=== PATIENT | female | born 1945 | race African-American/Black ===

== ENCOUNTER 2019-02-13 14:42 | Inpatient (IN) | payer MEDICARE ==
[~2019-02-13 14:42] MED LIST: ISOVUE-370 76%-LOCM 1 ML ONE
--- NOTE | 2019-02-13 15:05 | CT ---
Exam: Head CT without contrast HISTORY: Left arm weakness. COMPARISON: none FINDINGS: Hemorrhage: No intraparenchymal hemorrhage or extra-axial hematoma. Brain parenchyma: Cortical isaac-white matter differentiation is preserved. No mass effect or midline shift. Basilar cisterns are patent.White matter hypodensities due to chronic small vessel ischemic changes are noted. Remote insult in the right cerebellar hemisphere with volume loss. Ventricular system: Ventricles and sulci are patent and symmetric. Calvarium: Intact. Sinuses and mastoid air cells: Adequate aeration. IMPRESSION: No acute intracranial process. Results of study discussed with Dr. Patterson 02/13/2019 at 3:01 PM code CR
[2019-02-13 15:21] LABS: #Eosinphils 0.5 thou/uL (0.0-0.7); #Lymphocytes 2.1 thou/uL (1.20-3.40); #Monocytes 0.6 thou/uL (0.11-0.59); #Neutrophils 2.3 thou/uL (1.40-6.50); %Basophils 0.6 % (0.0-1.0); %Eosinophils 8.9 % (0.0-10.0); %Lymphocytes 37.7 % (21.0-51.0); %Monocytes 10.5 % (0.0-10.0); %Neutrophils 42.2 % (42.0-75.0); Hemoglobin 12.3 g/dL (12.0-16.0); Mean Corpuscular HGB CONC 33.7 g/dL (32.0-36.0); Mean Corpuscular Hemoglobin 32.9 pg (27.0-31.0); Mean Corpuscular Volume 97.8 fL (78.0-98.0); Mean Platelet Volume 9.3 fL (7.4-10.4); Platelet Count 148 thou/uL (130-400); RBC Distribution Width 11.9 % (11.5-14.5); Red Blood Cell (RBC) Count 3.74 mill/uL (4.20-5.40); White Blood Cell (WBC) Count 5.6 thou/uL (4.8-10.8)
[2019-02-13 15:28] LABS: PTT 28.9 SEC (22.9-36.1); Prothrombin Time 13.6 SEC (12.0-14.7)
--- NOTE | 2019-02-13 15:29 | RAD ---
CHEST 1 VIEW: Date: 02/13/19 HISTORY: Stroke alert. Left-sided weakness. COMPARISON: None. FINDINGS: Single view of chest demonstrates elongation of the aorta. Normal cardiac silhouette. Pulmonary vesse ls and hilum are normal. Costophrenic angles are clear. No consolidation or mass. No pneumothorax or osseous abnormalities. Left-sided transvenous pacemaker with lead position over the right atrium and right ventricle. IMPRESSION: No acute cardiopulmonary process. POS: CAMRON
[2019-02-13 15:44] LABS: ALT (SGPT) 16 U/L (8-55); AST (SGOT) 16 U/L (5-34); Albumin 3.9 g/dL (3.4-4.8); Alkaline Phosphatase 81 U/L (40-150); Anion Gap 14 mmol/L (10-20); BUN (Urea Nitrogen) 20 mg/dL (9.8-20.1); Bilirubin, Total 0.7 mg/dL (0.2-1.2); CK (CPK) 69 U/L (29-168); Calc. Creatinine Clearance 0 mL/min (70-130); Calcium 8.6 mg/dL (7.8-10.44); Carbon Dioxide 27 mmol/L (23-31); Chloride 102 mmol/L (98-107); Estimated GFR-MDRD 44; Globulin 2.2 g/dL (2.4-3.5); Glucose 98 mg/dL (83-110); Potassium 3.3 mmol/L (3.5-5.1); Protein, Total 6.1 g/dL (6.0-8.3); Sodium 140 mmol/L (136-145)
--- NOTE | 2019-02-13 15:46 | CT ---
CT ANGIOGRAM OF THE NECK CT ANGIOGHRAM OF THE HEAD 02/13/19 HISTORY: Left sided weakness. COMPARISON: None. TECHNIQUE: CT angiogram of the head and neck are performed in the axial plane. Three dimensional reformatted jimmy ges are submitted for interpretation. FINDINGS: POSTCONTRAST HEAD CT: No pathologic enhancement of the brain parenchyma. [place] left and implanted right ocular lens are appropriately located. Both globes are intact. Retrob ulbar fat is preserved. Adequate aeration of the visualized sinuses and mastoid air cells. Aerodigestive tract is patent. No mucosal abnormality. Torus villi palatini is noted. Midline fatty r aphe of the tongue is preserved. Epiglottis has a normal caliber. Pre-epiglottic is preserved. Symmetric attenuation of the parotid and submandibular glands. Unremarkable thyroid gland. No evidence of lymphadenopathy by size criteria. Symmetric attenuation of the sternocleidomastoid muscles. Cervical spine vertebral body height is maintained. There is no fracture. Varying degrees of central canal stenosis and neural foraminal narrowing on the basis of degenerative change. Upper mediastinum is unremarkable. Possible right upper lobe infiltrate. Additional chronic changes o f the visualized lung parenchyma is noted. CT ANGIOGRAM: There is appropriate enhancement and luminal diameter in the visualized aortic arch. Atherosclerosis is noted. RIGHT CAROTID: The innominate artery origin has appropriate enhancement and luminal diameter. The proximal right com mon carotid artery is slightly tortuous. The common carotid, carotid bifurcation and internal carotid artery have appropriate enhancement and luminal diameter. There is some tortuosity of the distal cer vical internal carotid artery. LEFT CAROTID: Left common carotid artery origin, common carotid artery, carotid bifurcation, and internal carotid h ave appropriate enhancement and luminal diameter. There is tortuosity in the distal cervical internal carotid artery. Right vertebral artery appears to be opacified. The left vertebral artery is patent throughout its co urse in the neck. Bilateral subclavian arteries are patent. CT ANGIOGRAM OF THE HEAD: Distal cervical and intracranial internal carotid arteries have appropriate enhancement and luminal d iameter. ANTERIOR CIRCULATION: Diminutive right A1 segment likely congenital variant. Left A1 segment is unremarkable. Bilateral A2 segments are noted. Left and right M1 segments have symmetric enhancement and luminal diameter. Prox imal MCA branches have appropriate enhancement and luminal diameter. POSTERIOR CIRCULATION: There is minimal contrast opacification of the distal cervical and intracranial vertebral artery like ly due to collateral flow. The majority of the basilar artery is supplied by the left vertebral arter y which is patent. No evidence of significant stenosis at the level of the basilar artery. Both curing oven tender have a origin and are patent. IMPRESSION: 1. No evidence of hemodynamically significant stenosis of either cervical carotid artery, based upon NASCET criteria. 2. No significant stenosis at the level of the [place]. 3. Results of the study discussed with Dr. Patterson, 02/13/19 at 3:36 p.m. Code CR POS: JULIETH
[2019-02-13 16:15] LABS: Bilirubin Negative (Negative); Blood, Urine Negative (Negative); Clarity CLEAR (Clear); Glucose, Urine (Dipstick) Negative (Negative); Leukocyte Negative (Negative); Nitrite Negative (Negative); Protein, Urine (Dipstick) Negative (Neg-Trace); Urobilinogen 0.2 mg/dL (0.2-1.0)
[2019-02-13 17:14] LABS: Medtox Reader # READER 4
[2019-02-13 17:15] LABS: Amphetamine Not Detected (NotDetected); Barbiturates Screen Not Detected (NotDetected); Benzodiazepine Screen Not Detected (NotDetected); Cocaine Metabolite Screen Not Detected (NotDetected); Medtox Control Line Valid? VALID (VALID); Methadone Not Detected (NotDetected); Methamphetamine Not Detected (NotDetected); Opiate Screen Not Detected (NotDetected); Oxycodone Screen Not Detected (NotDetected); Phencyclidine (PCP) Not Detected (NotDetected); THC/Cannabinoid Screen Not Detected (NotDetected); Tricyclic Screen Not Detected (NotDetected)
[2019-02-13] MEDS ORDERED: Potassium Chloride 20 MEQ TAB ONE (17:24)
[2019-02-13] MEDS ORDERED: Acetaminophen 325 MG TAB ONE (17:33)
--- NOTE | 2019-02-13 20:01 | HP ---
CHIEF COMPLAINT: Weakness and near syncope. HISTORY OF PRESENT ILLNESS: Ms. Reyes is a 73-year-old woman, who presents following a presyncopal episode earlier today while at a . The patient states that she was comforting a family member, who is significantly distressed during a when suddenly as she was walking down the aisle, began to feel weak in her legs, experiencing trembling in her hands and legs. She recalls her sister asking if she was okay and states that she felt someone catch her and lower her to the ground. She reports feeling generally weak and recalls everyone talking as they were surrounding her and checking on her. She denies any loss of consciousness. States that at one point, she lost control of her bladder. She has known history of CVA in the past and states that she has experienced "seizure-like" episodes since then. She also reports residual left-sided deficits from her previous CVA. According to her sister, she had a moment of slurred speech approximately 1 minute prior to this episode. The patient has full recollection of all the events and during initial history taking, she seemed very alert and oriented, stating she was back to her usual self. She denied any complaints. This did change drastically on arrival of her sister and [id number]. She suddenly became tearful and appeared to be weak again as she slumped in the bed, no longer opening her eyes and with less effort on speaking. The patient has a history of atrial fibrillation and is on Eliquis. She has a permanent pacemaker that was placed 2 years ago, which she states has been fluttering more recently. She used to have a loop recorder before it was exchanged for the pacemaker and states this was done so due to persistent abnormal rhythms. She follows regularly with a cadd operator, who she last saw 2 months ago in [place]. REVIEW OF SYSTEMS: The patient states recently she has been in her usual state of health. She reports a good appetite. No nausea or vomiting. No abdominal pain or cramping. She last had a bowel movement this morning without any straining. No constipation or diarrhea. No melena. Denies any urinary symptoms except for the episode of urinary incontinence earlier today. Otherwise, normally has no issues with urinary incontinence and has not had any dysuria or hematuria. She suffers from migraines on occasion, which ; for this, she takes sumatriptan. The patient denies having any recent cough or hemoptysis. She reports feeling somewhat short of breath during the episode. She had earlier, but at the moment, denies any chest pain or shortness of breath. She denies having any preceding symptoms prior to this episode. PAST MEDICAL HISTORY: 1. Hypertension. 2. 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 3. Seizures. 4. CHF. 5. Atrial fibrillation. 6. Arthritis. PAST SURGICAL HISTORY: Previous loop recorder placement, exchanged for pacemaker in 2016. SOCIAL HISTORY: The patient denies any tobacco use, alcohol use, or illicit drug use. She apparently used to smoke, but quit more than 10 years ago. PHYSICAL EXAMINATION: GENERAL: The patient appears well developed, nourished, and in no acute distress on initial examination. VITAL SIGNS: Temperature 98.4, pulse 79, respirations 18, blood pressure 127/80, O2 saturation 94% on room air. HEENT: Normocephalic and atraumatic. Pupils are equal, round, and reactive to light. Extraocular movement on initial examination appeared to be intact; however, physical exam was interrupted by the arrival of her sister and [id number]. Immediately after when attempting to complete extraocular movement exam, the patient with a fixed gaze, alert, and not following my finger. Prior to this, she was following her sister moving across the room without difficulty using her eyes only with her head fixed. The patient denies any blurred vision or loss of vision. Oropharynx is clear. NECK: Supple with full range of motion. No neck tenderness or rigidity. LUNGS: Clear to auscultation bilaterally. CARDIAC: Regular rate and rhythm. ABDOMEN: Soft, obese, nontender, nondistended. Normoactive bowel sounds present. EXTREMITIES: No lower leg swelling or edema. SKIN: Without rash or jaundice. NEUROLOGIC: The patient was noted to have good apparent strength in both upper and lower extremities. When asked to scoot backwards and sit upright in order to examine her lungs, the patient did so very quickly without any assistance and was able to lift her weight using both arms and holding onto the rails of the stretcher. Following the interruption of the exam by her sister's arrival, the patient suddenly became limp and when attempting to assess for power, she had notable weakness in the bilateral upper and lower extremities, which appeared to be due to poor effort given the drastic change. The patient reports reduced sensation in the left lower extremity and upper extremity from previous stroke, reduced hand lightout examiner strength bilaterally. Speech normal. LABORATORY DATA: White blood count 5.6, hemoglobin 12.3, hematocrit 36.5, platelets 148. Potassium 3.3, sodium 140, BUN 20, creatinine 1.1, GFR 44, glucose 78, calcium 8.6, total bilirubin 0.7, AST 16, ALT 16, alkaline phosphatase 81. Troponin negative x1. Albumin 3.9. Prolactin 4.08. Magnesium 2.2. Urinalysis; negative. Urine drug screen; negative. IMAGING DATA: 1. Chest x-ray, 02/13/2019; no acute cardiopulmonary process. 2. CT of the brain, 02/13/2019; no acute intracranial process. 3. CT angiography of the head and neck; no evidence of hemodynamically significant stenosis of either cervical carotid artery. No significant stenosis at the level of [place]. IMPRESSION AND PLAN: Ms. Reyes is a 73-year-old woman, who is being referred for management of the followin. Presyncope. The patient states she has had similar episodes associated with seizures in the past; however, prolactin level is normal. Potentially, episode was exacerbated by emotional stress. We will continue transient ischemic attack workup, which will include an echo and MRI brain as well as consult to Neurology. The patient seemed to be initially back to baseline; however, this changed drastically once her sister and [id number] arrived and she suddenly appeared weak. She is without any complaints at this present time. We will check TSH and lipid panel. 2. Drastic change in physical exam. Again, difficult to say if this is due to any emotional stress she felt on arrival of her family and similar to what she experienced earlier today. We will continue to monitor. Plan as above. 3. Electrolyte disturbances. Potassium slightly low at 3.3 that has been replaced in the emergency department. Magnesium normal. 4. Atrial fibrillation. The patient with a pacemaker in place. We will obtain pacemaker . We will resume her home medications and she will be on continuous telemetry monitoring. 5. Hypertension. Resume home medications once verified. We will continue to monitor her blood pressure. 6. Gastrointestinal prophylaxis. 7. Deep venous thrombosis prophylaxis with mechanical SCDs. PT/OT consult. 8. Code status; full. Her surrogate decision maker is her sister, Ms. Graves. The patient's case was discussed with attending, who agrees upon care as described above. Job ID: [id number]
[2019-02-13] MEDS ORDERED: Ondansetron ODT 4 MG TAB SL PRN (20:16)
[2019-02-13] MEDS ORDERED: Ondansetron PF 4 MG/2 ML Vial IVP PRN (20:16)
[2019-02-13] MEDS ORDERED: Acetaminophen 325 MG TAB PO PRN (20:16)
[2019-02-13 20:26] VITALS: BMI 34.9
[2019-02-13 21:25] LABS: Troponin I Less than 0.010 ng/mL (< 0.028)
[2019-02-13] MEDS ORDERED: SUMAtriptan Succinate 50 MG TAB PO PRN (21:44)
[2019-02-13] MEDS ORDERED: cloNIDine 0.2 MG TAB PO PRN (21:44)
[2019-02-13] MEDS ORDERED: Meloxicam 15 MG TAB PO SCH (22:00)
[2019-02-13] MEDS ORDERED: Apixaban 5 MG TAB PO SCH (22:00)
[2019-02-13] MEDS ORDERED: Carvedilol 25 MG TAB PO SCH (22:00)
[2019-02-13] MEDS ORDERED: levETIRAcetam 500 MG TAB PO SCH (22:00)
[2019-02-13] MEDS ORDERED: Gabapentin 300 MG CAP PO SCH (22:00)
[2019-02-13] MEDS ORDERED: DULoxetine 30 MG CAP PO SCH (22:00)
[2019-02-13] MEDS ORDERED: cloNIDine 0.1 MG TAB PO PRN (22:18)
[2019-02-13] MEDS: Fioricet 325/50/40 mg Tablet PO PRN (22:33)
[2019-02-13] MEDS: Atorvastatin Calcium 40 MG TAB PO SCH (22:34)
[2019-02-14 01:20] LABS: Troponin I 0.011 ng/mL (< 0.028)
[2019-02-14 06:20] LABS: Cardiac Risk 2.6 (Less than 4.5)
[2019-02-14] MEDS ORDERED: Aspirin 81 mg Enteric Coated Tablet PO SCH (09:00)
[2019-02-14] MEDS ORDERED: Non-Formulary Item 1 EACH (Glucosam/Chondr-Msm1/D3/C/Mang [Glucosamine Chondroitin Comple PO SCH (09:00)
[2019-02-14] MEDS: Meloxicam 15 MG TAB PO SCH ×2 (09:16→21:58)
[2019-02-14] MEDS: Aspirin 81 mg Enteric Coated Tablet PO SCH (09:16)
[2019-02-14] MEDS: Carvedilol 25 MG TAB PO SCH ×2 (09:16→21:57)
[2019-02-14] MEDS: Gabapentin 300 MG CAP PO SCH ×3 (09:16→21:58)
[2019-02-14] MEDS: DULoxetine 30 MG CAP PO SCH ×2 (09:16→21:58)
[2019-02-14] MEDS: Apixaban 5 MG TAB PO SCH ×2 (09:16→21:58)
[2019-02-14] MEDS: Ferrous Sulfate 325 MG TAB PO SCH (09:17)
[2019-02-14] MEDS: Hydrochlorothiazide 25 MG TAB PO SCH (09:18)
[2019-02-14] MEDS: Losartan 25 MG TAB PO SCH (09:18)
[2019-02-14] MEDS: levETIRAcetam 500 MG TAB PO SCH ×2 (09:19→21:58)
[2019-02-14] MEDS: Furosemide 40 MG TAB PO SCH (09:27)
[2019-02-14] MEDS: Fioricet 325/50/40 mg Tablet PO PRN ×2 (09:42→16:06)
--- NOTE | 2019-02-14 09:56 | PRG ---
DATE OF SERVICE: 02/14/2019 SUBJECTIVE: The patient is seen and examined at the bedside. She still feels somewhat weak and tired. She does not have any chest pain. OBJECTIVE: VITAL SIGNS: Blood pressure is 130/76, pulse is 70, temperature is 98.3, respirations 20, and O2 saturation is 93% on room air. HEENT: Head is atraumatic and normocephalic. Eyes, PERRLA. Sclerae are nonicteric. Oral mucosa is moist. NECK: Supple. LUNGS: Clear. HEART: S1 and S2. Somewhat irregularly irregular. No S3. No S4. The pacer is in place. The area is not inflamed. ABDOMEN: Soft and nontender. Bowel sounds are present. No organomegaly. EXTREMITIES: No clubbing, cyanosis, or edema. Osteoarthritic changes in both knees affecting her mobility. NEUROLOGIC: She is alert and oriented x4. There is no any motor or sensory deficits present. Cranial nerves are intact. LABORATORY DATA: Two sets of troponin I within normal limits. Triglycerides 79, cholesterol 121, LDL 59, and HDL 46. IMPRESSION: 1. Presyncope. 2. Chronic atrial fibrillation with controlled ventricular rate. 3. Pacemaker. 4. Hypertension. 5. Osteoarthritis, severe, both knees. DISCUSSION: The patient did not have more episodes of syncope during this hospitalization. She is scheduled to have her pacer interrogated. She is scheduled to have Neurology consultation and she is scheduled to have echocardiogram and MRI of the brain. We will continue current regimen with Eliquis. We will continue aspirin and statin. Job ID: [id number]
--- NOTE | 2019-02-14 17:25 | CON ---
DATE OF TELEMEDICINE CONSULTATION WITH JOSE SORTO: 02/14/2019 CHIEF COMPLAINT: Loss of consciousness. HISTORY OF PRESENT ILLNESS: The patient has had prior stroke. She was admitted to [facility] with similar symptoms in the past and was told she had a TIA. Her EEG was negative at that time. Her sister gave her medical history as well as far as the event was concerned. The patient was at a yesterday and she was upset a little bit. She went over to talk to one of her family members and sister states that she lost control of her limbs and she went limp like a ragdoll and they were trying to wipe her with a wet cloth and wake her up, but she was out and tremulous, and per the patient EMS could not feel her carotid pulse and her blood pressure was very low and she was brought here. She usually gets confused after the event. The entire event lasted 15 to 20 minutes and she was confused postictally, but her prolactin was normal here. She does not have these episodes frequently. This is very similar to her prior episode. She had one episode last year, one in August, and this is her second episode this year. She does not have any weakness of her extremities. She does have arthritis. PREVIOUS MEDICAL HISTORY: The patient has had a loop recorder and subsequently had to get a pacemaker. She also has hypertension, history of CVA in the past, and with a residual left upper and lower extremity weakness. She has history of prior spells or seizure-like events, congestive heart failure, and arthritis. PREVIOUS SURGICAL HISTORY: Loop recorder placement and subsequent pacemaker placement in 2017, hernia repair, hysterectomy. FAMILY HISTORY: She has 2 brothers and 4 sisters. One brother of diabetes. One sister from her COPD and another from hypertension and complications related to hypertension. Her parents both from cancer. SOCIAL HISTORY: The patient does not smoke or drink. She lives with her sister at the moment and she used to be a smoker about 10 years ago. REVIEW OF SYSTEMS: PULMONARY: Negative for shortness of breath or cough. GASTROINTESTINAL: Negative for nausea, vomiting, or diarrhea. ENDOCRINE: Negative for diabetes or thyroid dysfunction. OPHTHALMOLOGIC: Negative for any vision problems. NEUROLOGIC: Positive for episodes or spells that are seizure-like event and history of weakness on the left side from a previous stroke. DERMATOLOGIC: Negative for rash. LABORATORY WORKUP: White count 5.6, hemoglobin 12.3, hematocrit 36.5, platelet count 148. PT 13.6, INR 1, APTT 28.9. Chemistry, her sodium was 140, potassium 3.3, chloride 102, bicarb 27, BUN 20, creatinine 1.21, glucose 98, and prolactin 4.08. Urine tox screen was negative. Urinalysis was also negative and her CT of the head was negative for acute stroke. CT angiography was also negative for any vascular stenosis in the carotid, as well as [place]. PHYSICAL EXAMINATION: VITAL SIGNS: Blood pressure was 130/76, temperature 98.3, pulse 70, respiratory rate 20, and O2 saturations 93%. GENERAL APPEARANCE: Well-built, well-nourished, very pleasant lady, who is comfortable in bed. CHEST: Clear vesicular breathing. CARDIOVASCULAR: S1 and S2 heard. No murmurs. ABDOMEN: Soft. No organomegaly noted. NEUROLOGIC: Higher intellectual functions. Normal orientation to time, place, and person and appropriate conversation. Cranial nerves 2 through 12. Normal extraocular movements. Tongue midline. Decreased sensation of the face on the right side. Normal elevation of palate. No facial asymmetry. Normal hearing. Motor examination, bulk normal. Tone normal. Strength was tested in iliopsoas , hamstrings, quadriceps, ankle dorsiflexion, plantar flexion bilaterally; deltoid, biceps, triceps, wrist extension and flexion; finger extension and flexion. On the left side, there seems to be general decrease in the strength to 3/5 in the left upper extremity and on the right and both lower extremities, there was some limitation with effort due to pain and her strength was 4/5. Cerebellar examination normal [id number], [id number]. Deep tendon reflexes 2+ throughout, and sensory there was decreased sensation in the right arm and right face. IMPRESSION: The patient is a 73-year-old lady with episodes on and off loss of consciousness as well as tremulousness, which are not very frequent and they have not happened all of last year except for August 2017 and she had another event in August 2018 and current event in January. This event was associated with low blood pressure and her neurological examination shows decreased sensation in the right face and arm and left lower extremity and mild weakness in the left upper extremity at 3/5 and bilateral lower extremities were 4/5. Clinical examination and history are most consistent with residual effects from the prior stroke plus possible syncopal event due to low blood pressure and this is likely not vascular or could be secondary to drop in her blood pressure. RECOMMENDATION: I would suggest keeping her on her current anticoagulant and consider adding aspirin if there is high suspicion for a TIA and obtain orthostatic vitals and I will see her as needed here in the hospital. Please refer her to an epileptologist as well for a full workup. Job ID: [id number] MTDD
[2019-02-14] MEDS: Potassium Chloride 10 MEQ TAB PO SCH (18:26)
[2019-02-14] MEDS: Atorvastatin Calcium 40 MG TAB PO SCH (21:58)
[2019-02-15 05:06] LABS: Platelet Count 147 thou/uL (130-400)
[2019-02-15] MEDS: Fioricet 325/50/40 mg Tablet PO PRN ×2 (05:16→21:39)
[2019-02-15] MEDS: Meloxicam 15 MG TAB PO SCH ×2 (08:11→21:29)
[2019-02-15] MEDS: Gabapentin 300 MG CAP PO SCH ×3 (08:11→21:30)
[2019-02-15] MEDS: DULoxetine 30 MG CAP PO SCH ×2 (08:11→21:29)
[2019-02-15] MEDS: Apixaban 5 MG TAB PO SCH ×2 (08:11→21:29)
[2019-02-15] MEDS: levETIRAcetam 500 MG TAB PO SCH ×2 (08:11→21:29)
[2019-02-15] MEDS: Carvedilol 25 MG TAB PO SCH (08:11)
[2019-02-15] MEDS: Furosemide 40 MG TAB PO SCH (08:12)
[2019-02-15] MEDS: Losartan 25 MG TAB PO SCH (08:12)
[2019-02-15] MEDS: Aspirin 81 mg Enteric Coated Tablet PO SCH (08:12)
[2019-02-15] MEDS: Potassium Chloride 10 MEQ TAB PO SCH ×2 (08:12→16:22)
[2019-02-15] MEDS: Hydrochlorothiazide 25 MG TAB PO SCH (08:13)
[2019-02-15] MEDS: Ferrous Sulfate 325 MG TAB PO SCH (08:13)
[2019-02-15] MEDS: Acetaminophen 325 MG TAB PO PRN (13:01)
[2019-02-15] MEDS ORDERED: Sodium Chloride 0.9% 250 ML IVPB SCH (13:45)
[2019-02-15] MEDS ORDERED: Sodium Chloride 0.9% 250 ML IV SCH (15:15)
--- NOTE | 2019-02-15 15:45 | PRG ---
DATE OF SERVICE: 02/15/2019 SUBJECTIVE: The patient is seen and examined at bedside. OBJECTIVE: VITAL SIGNS: She was found to be orthostatic with last blood pressure 82 systolic over 47, temperature 97.8, pulse 66, respiratory rate is 18, and O2 saturation is 98% on room air. HEENT: Head is atraumatic and normocephalic. Eyes are PERRLA. Sclerae are nonicteric. Oral mucosa is moist. NECK: Supple. LUNGS: Slightly diminished at both bases in terms of breath sounds. HEART: S1 and S2 normal. ABDOMEN: Soft, obese, nontender. EXTREMITIES: 1+ peripheral edema similar bilaterally. NEUROLOGIC: Intact. LABORATORY DATA: Labs showed hemoglobin of 13.0, hematocrit 37.9, platelet count is 147, creatinine 1.2 and estimated GFR is 54. Echocardiogram showed LVEF of 60% to 65%, grade 1/3 diastolic dysfunction with [id number]-ii-[id number] tricuspid regurgitation, and elevated right ventricular systolic pressure estimated at 56 mmHg. IMPRESSION: 1. Near syncope, most likely related to over-medication with diuretics and we found that she was on 2 ARBs at the same time. 2. Orthostasis secondary to diuresis and multiple blood pressure medications. We are going to stop Benicar with hydrochlorothiazide given bolus of normal saline at 250 mL/h and we are going to monitor her blood pressure closely. 3. Pacemaker interrogated. She had very short runs of atrial fibrillation x2. 4. Hypertension. 5. Osteoarthritis severe of both knees. DISCUSSION: The patient has received IV fluids. Her systolic blood pressure is improved. We are going to cancel MRI of the brain since this is mostly related to the medicine. She will follow up with her primary healthcare network consultant to compare the previous finding of her echo and the current one, which was done in this hospitalization. We will continue her Eliquis and aspirin and statin like she is in sinus rhythm, but from [id number], she has some short runs of atrial fibrillation lasting just seconds. At this point, we will try to wait with PT to get her up and start mobilizing since she is hypotensive, but as soon as this is improved, she will be participating in PT and her hemoglobin is stable. So, hypotension is not related to any blood loss. Job ID: [id number]
[2019-02-15] MEDS: Atorvastatin Calcium 40 MG TAB PO SCH (21:29)
[2019-02-16] MEDS: Carvedilol 25 MG TAB PO SCH ×3 (00:41→21:42)
[2019-02-16] MEDS: levETIRAcetam 500 MG TAB PO SCH ×2 (09:18→21:42)
[2019-02-16] MEDS: Meloxicam 15 MG TAB PO SCH ×2 (09:18→21:41)
[2019-02-16] MEDS: Losartan 25 MG TAB PO SCH (09:19)
[2019-02-16] MEDS: Aspirin 81 mg Enteric Coated Tablet PO SCH (09:20)
[2019-02-16] MEDS: Apixaban 5 MG TAB PO SCH ×2 (09:20→21:41)
[2019-02-16] MEDS: Potassium Chloride 10 MEQ TAB PO SCH ×2 (09:20→16:58)
[2019-02-16] MEDS: Ferrous Sulfate 325 MG TAB PO SCH (09:20)
[2019-02-16] MEDS: DULoxetine 30 MG CAP PO SCH ×2 (09:20→21:41)
[2019-02-16 09:21] LABS: Hemoglobin 13.4 g/dL (12.0-16.0)
[2019-02-16] MEDS: Gabapentin 300 MG CAP PO SCH ×3 (09:26→21:42)
[2019-02-16 09:42] LABS: Anion Gap 14 mmol/L (10-20); BUN (Urea Nitrogen) 18 mg/dL (9.8-20.1); Calc. Creatinine Clearance 58 mL/min (70-130); Calcium 9.1 mg/dL (7.8-10.44); Carbon Dioxide 31 mmol/L (23-31); Chloride 101 mmol/L (98-107); Estimated GFR-MDRD 47; Glucose 242 mg/dL (83-110); Potassium 3.5 mmol/L (3.5-5.1); Sodium 142 mmol/L (136-145)
[2019-02-16] MEDS: Fioricet 325/50/40 mg Tablet PO PRN ×2 (10:23→22:34)
--- NOTE | 2019-02-16 16:53 | PRG ---
DATE OF SERVICE: 02/16/2019 SUBJECTIVE: The patient is seen and examined at bedside. She feels significantly better today after she received 2 boluses of IV fluids and her blood pressure is above 100 systolic. OBJECTIVE: VITAL SIGNS: Blood pressure is 116/69, pulse is 80, temperature is 97.4, respiratory rate is 16, and O2 saturation is 94% on room air. HEENT: Head is atraumatic and normocephalic. Eyes are PERRLA. Sclerae nonicteric. Oral mucosa is moist. NECK: Supple. LUNGS: Breath sounds slightly diminished with few crackles bilaterally at both bases. HEART: S1 and S2 normal. No S3. No S4. ABDOMEN: Soft, nontender, and obese. Bowel sounds are present. EXTREMITIES: No clubbing, cyanosis, or edema. NEUROLOGICAL: Intact. LABORATORY DATA: Labs showed hemoglobin of 13.4 and hematocrit 39.5. Normal electrolytes. Creatinine of 1.34 and BUN of 18. Troponin I less than 0.010 and calcium level is 9.1. IMPRESSION: 1. Near syncope, most likely related to over medication with diuretics. 2. Orthostasis, secondary to over medication. 3. Pacemaker interrogated with short runs of atrial fibrillation x2. 4. Hypertension. 5. Osteoarthritis, severe, both knees. DISCUSSION: The patient is doing significantly better. Her blood pressure is improved after 2 boluses of IV fluids. Her home medications affecting blood pressure were modified. Her Lasix dose was held this morning. Also, her Coreg was held this morning. Her hemoglobin came back within normal limits. There was some concern that she might be losing some blood since she is on Eliquis and aspirin, but this was fine. We are going to get PT to get her up and started moving around to make sure that she is ready to be discharged tomorrow. Again, we will cut back significantly on her medications and she should be ready to go tomorrow. Job ID: [id number]
[2019-02-16] MEDS: Atorvastatin Calcium 40 MG TAB PO SCH (21:42)
[2019-02-17 05:36] LABS: Hemoglobin 12.3 g/dL (12.0-16.0); Platelet Count 145 thou/uL (130-400)
[2019-02-17 08:05] VITALS: TEMP 97.9
[2019-02-17] MEDS: Acetaminophen 325 MG TAB PO PRN (08:55)
[2019-02-17] MEDS: levETIRAcetam 500 MG TAB PO SCH (08:56)
[2019-02-17] MEDS: Losartan 25 MG TAB PO SCH (08:56)
[2019-02-17] MEDS: Apixaban 5 MG TAB PO SCH (08:58)
[2019-02-17] MEDS: Carvedilol 25 MG TAB PO SCH (08:59)
[2019-02-17] MEDS: Potassium Chloride 10 MEQ TAB PO SCH (08:59)
[2019-02-17] MEDS: Aspirin 81 mg Enteric Coated Tablet PO SCH (09:00)
[2019-02-17] MEDS ORDERED: Furosemide 40 MG TAB PO SCH (09:00)
[2019-02-17] MEDS: Meloxicam 15 MG TAB PO SCH (09:00)
[2019-02-17] MEDS: DULoxetine 30 MG CAP PO SCH (09:00)
[2019-02-17] MEDS: Ferrous Sulfate 325 MG TAB PO SCH (09:01)
[2019-02-17] MEDS: Gabapentin 300 MG CAP PO SCH (09:01)
[2019-02-17 11:57] VITALS: BP 113/72
--- NOTE | 2019-02-17 13:41 | DIS ---
DATE OF ADMISSION: 02/16/2019 DATE OF DISCHARGE: 02/17/2019 DIAGNOSES AT THE TIME OF DISCHARGE: 1. Near syncope, most likely related to orthostasis secondary to over medications with diuretics and antihypertensives. 2. Orthostasis secondary to over medication as stated above. 3. Pacemaker interrogation with short runs of atrial fibrillation x2. 4. Hypertension. 5. Osteoarthritis of both knees. 6. 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 7. Seizure disorder. 8. Atrial fibrillation, chronic. 9. Chronic cardiac diastolic dysfunction. CONSULTANTS: Dr. Gannon, Neurology Service. HOSPITAL COURSE: The patient is a 73-year-old female, who was admitted to the hospital with episode of near syncope and weakness. Apparently, this happened when she was at the and she was walking down the aisle, began to feel weak in her legs and experiencing trembling in her hands and legs, so she was lowered down to the ground. She does not remember this episode at all. stated at some point, she lost control of her bladder. She has a history of CVA in the past and she experienced seizure-like episodes since then. She is on antiepileptic drugs at home. She was brought to the emergency room by helicopter and during emergency room visit, her blood work showed white count of 5.6, hemoglobin 12.3, hematocrit 36.5, platelet count 148,000, potassium 3.3, sodium 140, BUN 20, creatinine 1.1, glucose 78. Her liver function tests were within normal limits. Troponin I was negative x1. Prolactin was 4.08, magnesium 2.2. Urinalysis was negative. Urine drug screen was negative. The chest x-ray did not show any acute abnormalities. CT of the brain did not show any acute abnormalities and CT angiogram of the head and neck showed no evidence of hemodynamically significant stenosis or either cervical carotid artery, and there was no any significant stenosis at the level of [place], so the patient was admitted to the hospital to the Stroke Unit for further evaluation to rule out possible central nervous system event versus presyncope/syncope. Her potassium was replaced. Magnesium level was normal. The patient has a pacemaker, which is functioning well. It was interrogated and it showed 2 short runs of atrial fibrillation, but not sustainable. Subsequently, she had her orthostatic vitals checked and she was regimen of her blood pressure medications was changed. She was on two angiotensin receptor blockers, one of them was with HCTZ. It was felt that she was overmedicated and she was to some degree orthostatic because of low volume status, so she was giving 2 boluses of IV fluids and her Coreg and Lasix were put on hold. Subsequently, she improved. She did session with Physical Therapy. She did well. Her echocardiogram was done in the meantime and it came back with LVEF of 60% to 65% and grade 1/3 diastolic dysfunction. There was also some [id number] tricuspid regurgitation and elevated right ventricular systolic pressure estimated at 50 mmHg. She is discharged home today in good condition after she was seen by Dr. Gannon from Neurology consultation and she recommended to do the followup with epileptologist just to make sure that she does not have any more episodes of epileptic events. The patient is discharged in good condition. Her vitals; blood pressure is 113/72, pulse is 80, temperature is 97.9, respirations 18, O2 saturation is 93% on room air. She is seen and examined before she is discharged. DISPOSITION: Home. DIET: Low salt. MEDICATIONS: At the time of discharge; 1. Fioricet 1 tablet q.6 hours p.r.n. as needed. 2. Hydrocodone 7.5 mg p.r.n. as needed every 6 hours. 3. Flexeril 10 mg at bedtime. 4. Meloxicam 15 mg twice a day. 5. Keppra 500 mg twice a day. 6. Eliquis 5 mg twice a day. 7. Famotidine 20 mg twice a day. 8. Cymbalta 30 mg twice a day. 9. Isosorbide mononitrate 30 mg once a day. 10. Furosemide 40 mg once a day. 11. Carvedilol 25 mg twice a day. 12. Aspirin 81 mg once a day. 13. Losartan 100 mg once a day. 14. Ferrous sulphate 325 mg once a day. 15. Potassium 10 mEq twice a day. 16. Glucosamine and chondroitin two tablets once a day. 17. Gabapentin 300 mg three times a day. 18. Apple cider vinegar 1000 mg once a day. FOLLOWUP: She is going to follow up with her primary care physician in 1 week. TIME SPENT: Time spent on this discharge is more than 30 minutes. Job ID: [id number]
== END 2019-02-17 14:10 | disposition home health service (06) | DRG 312 ==
LOC: ERS 14:42 → ERHOLD 17:52 → 2SE 20:00 → OBSVTOIN 02-16 13:24
PROVIDERS: ADMIT Family Medicine; ATTEND Family Medicine
DX: I95.2 Hypotension due to drugs (principal); I69.354 Hemiplegia and hemiparesis following cerebral infarction affecting left non-dominant side; I50.32 Chronic diastolic (congestive) heart failure; T46.5X5A Adverse effect of other antihypertensive drugs, initial encounter; T50.2X5A Adverse effect of carbonic-anhydrase inhibitors, benzothiadiazides and other diuretics, initial encounter; R55 Syncope and collapse; I11.0 Hypertensive heart disease with heart failure; I48.2 Chronic atrial fibrillation; M17.0 Bilateral primary osteoarthritis of knee; E87.6 Hypokalemia; Y92.9 Unspecified place or not applicable; Z79.01 Long term (current) use of anticoagulants; Z95.0 Presence of cardiac pacemaker; Z87.891 Personal history of nicotine dependence; Z90.710 Acquired absence of both cervix and uterus; Z88.0 Allergy status to penicillin; Z79.82 Long term (current) use of aspirin; Z79.899 Other long term (current) drug therapy
CPT/HCPCS: 36415; 36416; 70450; 70496; 70498; 71045; 80048; 80053; 80061; 80306; 81003; 82550; 82565; 83735; 83880; 84146; 84443; 84484; 85014; 85018; 85025; 85049; 85610; 85730; 86850; 86900; 86901; 93005; 93306; 94760; Q9966